=== PATIENT | female | born 2000 | race Caucasian/White ===

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

== ENCOUNTER 2018-07-23 00:05 | Inpatient (IN) | payer MEDICAID ==
[~2018-07-23] VITALS: Ht 167.6 cm; Wt 75.3 kg
[~2018-07-23 00:05] MED LIST changes: -BAC30OI TOP; +BACI28.34 TOP
[2018-07-23 00:23] VITALS: Ht 167.6 cm; Wt 75.3 kg
[2018-07-23 00:24] VITALS: BP 112/67; PULSE 92; RESP 17
[2018-07-23] MEDS ORDERED: PREN1TAB13 PO (00:25)
[2018-07-23] MEDS ORDERED: IBUPROFEN 600 MG TAB PO PRN (01:00)
[2018-07-23] MEDS ORDERED: OXYTOCIN 30 UNITS/LR 500 ML IV SCH ×2 (01:00)
[2018-07-23] MEDS ORDERED: BUTORPHANOL 2 MG INJ IV PRN (01:00)
[2018-07-23] MEDS ORDERED: CARBOPROST 250 MCG INJ IM PRN (01:00)
[2018-07-23] MEDS ORDERED: OXYTOCIN 30 UNITS/LR 500 ML IV PRN (01:00)
[2018-07-23] MEDS ORDERED: METHYLERGONOVINE 0.2 MG INJ IM PRN (01:00)
[2018-07-23] MEDS ORDERED: MISOPROSTOL 200 MCG TAB PR PRN (01:00)
[2018-07-23] MEDS ORDERED: LIDOCAINE 1% (MPF) 30 ML INJ INJ PRN (01:00)
[2018-07-23] MEDS ORDERED: AMPICILLIN 2 GM/NS (PMX) 100 ML IV ONE (01:00)
[2018-07-23] MEDS: LACTATED RINGER'S 1,000 ML IV SCH ×7 (01:21→23:27)
--- NOTE | 2018-07-23 01:41 | TRIAGE ---
OB Triage Datetime Report Generated by CPN: 07/23/2018 01:41 Datetime: 07/23/2018 00:35 Vaginal Exam Dilatation (cms): 1.0 Effacement (%): 50 Station: -4 Exam By: Tanvi TERRY Membrane Status: Intact Vaginal Bleeding: None Nitrazine: Negative Cervix, Position: Posterior Datetime: 07/23/2018 00:27 Time of Arrival: 07/23/2018 00:05 EGA: 41.0 Arrived By: Wheelchair Arrived From: Home Chief Complaint: DFM SINCE 5PM Movement: Decreased Movement: Decreased Rupture of Membranes: Denies Vaginal Discharge: Denies Recent Sexual Intercouse: Denies Abdominal Trauma: Not Applicable Patient Complaints: Other Time Provider Notified: 07/23/2018 00:42 Provider Notified: DR. VOGEL Initial Plan: EFM, SVE, CALL OB Datetime: 07/23/2018 00:20 Stage of : OB Triage Maternal Assessment Level of Consciousness: Fully Conscious DTR's/Clonus: DTRs 2+; No Clonus Headache: Denies Blurred Vision: No Respiratory Effort: Unlabored; Regular Rhythm; Equal Expansion Breath Sounds, Left: Clear and Equal Breath Sounds, Right: Clear and Equal Nausea/Vomiting: Denies RUQ Epigastric Pain: Denies Lower Extremities Edema: None Degree: None Upper Extremities Edema: None Degree: None Facial Edema: None Temperature Route: Oral Fall Risk Assessment History of Falling: (0) No Secondary Diagnosis: (0) No Ambulatory Aid: (0) Bedrest/Nurse Assist IV Therapy: (0) No Gait: (0) Normal/Bedrest/Immobile Mental Status: (0) Oriented to Own Ability Fall Score: 0 Fall Risk Score Definition: No Risk: No action required Pain Assessment Pain Scale: 0 Pain Presence: None/Denies Pain Type: N/A Datetime: 07/23/2018 00:16 Labor Evaluation Monitor Mode: External Contraction Comments: APPLIED Heart Rate Monitor Mode: External US Comments: APPLIED
[2018-07-23] MEDS: MISOPROSTOL 50 MCG CAPSULE PO PRN ×3 (04:07→15:30)
--- NOTE | 2018-07-23 04:29 | HP ---
Date/Time of Note Date/Time of Note DATE: 07/23/18 TIME: 04:23 OB - History Hx of Present Free Text/Dictation Late entry note. Patient seen on 07/22/2018 18 years old 1 feet single intrauterine at 41 weeks with JODY of 07/16/2018 complaining of decreased movement. She denies nausea, vomiting, shortness of breath, chest pain, headache, visual changes, vaginal bleeding or LOF. Chief Complaint: Decreased movement Estimated Due Date: Jul 16, 2018 : 1 Care: Good Care Ultrasounds: Normal mid trimester US Obstetrical Complications: None Medical Complications: None Past Family/Social History * Past Medical, Surgical, Family and Obstetric Histories reviewed from [facility]. Blood Type: O+ Rubella: immune RPR/VDRL: Negative GBS Status: Negative HBsAG: Negative OB Admission Exam Vital Signs Vital Signs Vital Signs Date Temp Pulse Resp B/P (MAP) Pulse Ox O2 O2 Flow FiO2 Time Delivery Rate 07/23/18 98.8 92 17 112/67 Room Air 00:24 (82) Physical Exam HEENT: WNL Heart: Rhythm Normal Abdomen: WNL Extremities: Normal Cervical Dilatation: 1cm Effacement: 50% Station: Ballotable Membranes: Intact Heart Rate: 140's Accelerations: Accelerations Present Decelerations: No Decelerations Varibility: Moderate Contractions on Admission: >10 Minutes Apart Intensity: Mild Last 72 hours Lab Results CBC & BMP 07/23/18 01:23 OB Assessment/Plan Other plan: 18 years old 1 with single intrauterine at 41 weeks complaining of decreased movement admitted for induction of labor. - FHR: No sign of metabolic acidosis- Category I - Continuous EFM, toco - CBC, blood type and screen - Analgesia options with R/B/A discussed in detail with patient - Epidural per patient request - Ultrasound performed, CATRACHO 10.7 and biophysical profile 8 out of 8. EFW 3658 g - Cytotec for induction of labor please see the orders - O+/Rubella: Immune - GBS: Negative - Follow-up with primary OB Admission, procedures, expectations, risks and possible complications have been discussed in detail with the patient. Risk of vaginal delivery including but not limited to bleeding, infection, cervical laceration, placental retention, injury to fetus, blood transfusion, blood transfusion related infection, risk of anesthesia, adhesion, cervical laceration, episiotomy/laceration, possible delivery with risk of bleeding, infection, injury to other organs (bowel, bladder, ureter, vessels, nerves), injury to fetus, blood transfusion, blood transfusion related infection, risk of anesthesia, scar and hernia formation, needs for future , removal of uterus or any other indicated surgery discussed with the patient. She expressed understanding and repeats the risks. All of her questions were answered. She signed the informed consent. PHYSICIAN'S VERIFICATION OF INFORMED CONSENT The patient was counseled regarding the procedure, its indications, risks, potential complications and alternatives and any questions were answered. Consent was obtained. PLANNED PROCEDURE/TREATMENT: Vaginal delivery, episiotomy, repair of laceration possible delivery BRANDON VOGEL Jul 23, 2018 04:29
[2018-07-23] MEDS ORDERED: AMPICILLIN 1 GM/NS (PMX) 50 ML IV SCH (05:00)
[2018-07-23] MEDS ORDERED: MISOPROSTOL 50 MCG CAPSULE PO SCH (05:00)
--- NOTE | 2018-07-23 07:42 | PREAC ---
Date/Time of Note Date/Time of Note DATE: 07/23/18 TIME: 07:42 Anesthesia Eval and Record Evaluation Time Pre-Procedure Interview DATE: 07/23/18 TIME: 07:42 Age 18 Sex female NPO: 8 hrs Preoperative diagnosis labor pain Planned procedure epidural Past Medical History Past Medical History: Includes : Gestational age: (41.1) Surgery & Anesthesia Issues No known issue Meds Anticoagulation: No Beta Jacqui within 24 hr: No Reason Beta Jacqui not given: Pt. not on B-Jacqui Active Scripts Ibuprofen* (Ibuprofen*) 600 Mg Tablet, 600 MG PO Q6, #30 TAB Prov:TERELL CORDERO PA-C 02/01/15 Bacitracin* (Bacitracin Zinc Oint*) 28.35 Gm Oint, 1 APPLIC TOP BID, #1 TUB APPLI TO Prov:TERELL CORDERO PA-C 02/01/15 Neomy Sulf/Bacitrac Zn/Poly* (Neosporin* Topical Oint) 15 Gm Oint..gm., 1 APPLIC TOP BID for 7 Days, TUB Prov:CHODORIS 10/13/14 Ibuprofen* (Motrin*) 600 Mg Tab, 600 MG PO Q6 for PAIN, #15 TAB Prov:CHODORIS 10/13/14 Reported Medications Pnv95/Ferrous Fumarate/FA ( Vitamins Tablet) 1 Each Tablet, 1 EACH PO, TAB 07/23/18 Current Medications Lactated Ringer's 1,000 ml @ 125 mls/hr Q8H IV Last administered on 07/23/18at 05:25; Admin Dose 125 MLS/HR; Start 07/23/18 at 00:44 Butorphanol Tartrate (Stadol) 2 mg Q2H PRN IV .PAIN; Start 07/23/18 at 01:00 Lidocaine (Xylocaine 1% (Mpf)) 30 ml ONCE PRN INJ .EPISIOTOMY; Start 07/23/18 at 01:00 Oxytocin/Lactated Ringer's 500 ml @ 500 mls/hr ONCE POST IV ; Start 07/23/18 at 01:00 Oxytocin/Lactated Ringer's 500 ml @ 125 mls/hr POST IV ; Start 07/23/18 at 01:00 Ibuprofen (Motrin) 600 mg ONCE PRN PO .PAIN 1-5; Start 07/23/18 at 01:00 Oxytocin/Lactated Ringer's 500 ml @ 0 mls/hr ONCE PRN IV .VAGINAL BLEEDING; Start 07/23/18 at 01:00 Methylergonovine Maleate (Methergine) 0.2 mg ONCE PRN IM .VAGINAL BLEEDING; Start 07/23/18 at 01:00 Carboprost Tromethamine (Hemabate) 250 mcg ONCE PRN IM .VAGINAL BLEEDING; Start 07/23/18 at 01:00 Misoprostol (Cytotec) 1,000 mcg ONCE PRN TN .VAGINAL BLEEDING; Start 07/23/18 at 01:00 Misoprostol (Cytotec 50 Mcg Capsule) 50 mcg Q4 PRN PO TO INDUCE UC'S Last administered on 07/23/18at 04:07; Admin Dose 50 MCG; Start 07/23/18 at 04:00 Meds reviewed: Yes Allergies Coded Allergies: No Known Allergy (Unverified , 07/23/18) Allergies Reviewed: Yes Labs/Studies Labs Reviewed: Reviewed by anesthesiologist Result Diagram: 07/23/18 0123 Laboratory Tests 07/23/18 01:23 Blood Bank Test 07/23/18 01:23 Antibody Screen NEGATIVE Blood Type O POSITIVE Rh Immune Globulin Candidate NO test: Positive Studies: ECG (n/a), CXR (n/a) Pre-procedure Exam Last vitals Vital Signs Date Temp Pulse Resp B/P (MAP) Pulse Ox O2 O2 Flow FiO2 Time Delivery Rate 07/23/18 98.8 92 17 112/67 Room Air 00:24 (82) Airway: Adequate mouth opening Mallampati: Mallampati I Teeth: Normal Lung: Normal Heart: Normal ASA Physical Status ASA physical status: 2 Emergency: None Planned Anesthetic Neuraxial: Epidural Pre-operative Attestations Prior to commencing anesthesia and surgery, the patient was re-evaluated, there was verification of: *The patient's identity *The results of appropriate recent lab work and preoperative vital signs *The above evaluation not changing prior to induction *Anesthetic plan, risk benefits, alternative and complications discussed with patient/family; questions answered; patient/family understands, accepts and wishes to proceed. ESTER WRIGHT MD Jul 23, 2018 07:42
[2018-07-23] MEDS ORDERED: FENTAnyl 2MCG/ML-ROPIV 0.2% 100 ML ONE (07:56)
[2018-07-23] MEDS ORDERED: EPHEDrine 25 MG/5 ML SYG ONE (10:45)
[2018-07-23] MEDS: EPHEDrine SULFATE 50 MG/5 ML SYG IV PRN ×3 (10:54→13:09)
[2018-07-23] MEDS ORDERED: FENTAnyl 2MCG/ML-ROPIV 0.2% 100 ML BAG EPI SCH (11:00)
[2018-07-23] MEDS ORDERED: NALOXONE (0.4 MG/ML) INJ IV PRN (11:00)
[2018-07-23] MEDS ORDERED: ONDANSETRON 4 MG INJ IV PRN (11:00)
[2018-07-23] MEDS ORDERED: EPHEDrine SULFATE 50 MG/5 ML SYG IV PRN (19:30)
[2018-07-24] MEDS ORDERED: DIPHENOXYLATE/ATROPINE TAB PO ONE (01:30)
[2018-07-24] MEDS ORDERED: OXYTOCIN 30 UNITS/LR 500 ML IV SCH (02:20)
--- NOTE | 2018-07-24 02:20 | LDN ---
Date/Time of Note Date/Time of Note DATE: 07/24/18 TIME: 02:16 Delivery Summary July 24, 2018 Weeks of Gestation 41 weeks Placenta Delivered: Spontaneously Meconium: none Episiotomy: Yes Indication for episiotomy heart deceleration during second stage of labor, prolonged deceleration, Perineal laceration: 2 Laceration repair: Due to heart deceleration during second stage of labor and prolonged deceleration at +2 station , decision was made to perform with vacuum assisted vaginal delivery. Using Kiwi vacuum at complete complete +2 station vacuum extraction applied. Delivery required episiotomy for faster delivery of the baby due to terminal deceleration. A right mediolateral episiotomy performed. Baby's head was delivered first in the right lateral position. 3 times tight nuchal cord as well as cord knots was noted for. Baby's cord was clamped and cut and was immediately handed to the waiting artery team Anesthesia type: Epidural Estimated blood loss: 400 Sponge & Needle done & correct: Yes All needle counts correct: Yes Any foreign bodies felt in the: No Infant Delivery Information Sex Sex: male Apgars 1 Minute: 9 5 Minute: 9 Suctioning Nose & mouth suctioned at santiago: Yes Delee suction performed: Yes Umbilical Cord Umbilical cord with: 3 Vessels Cord presentations: nuchal cord (Nuchal cord x3 tight with a true knots noted) Nuchal cord present X: 3 Cord Blood was obtained: Yes Mother & Baby Disposition Disposition Mom & Baby to Maternity; Good: Yes Mom transferred to: Other () Baby to NICU: No LISA LUNDBERG MD Jul 24, 2018 02:20
[2018-07-24] MEDS ORDERED: ACETAMINOPHEN 325 MG TAB PO PRN (02:30)
[2018-07-24] MEDS ORDERED: METHYLERGONOVINE 0.2 MG INJ IM PRN (02:30)
[2018-07-24] MEDS ORDERED: MISOPROSTOL 200 MCG TAB PR PRN (02:30)
[2018-07-24] MEDS ORDERED: OXYTOCIN 30 UNITS/LR 500 ML IV PRN (02:30)
[2018-07-24] MEDS ORDERED: NEOMYC/POLYMYX/BACIT 30 GM OINT TOP SCH (02:30)
[2018-07-24] MEDS ORDERED: ZOLPIDEM 5 MG TAB PO PRN (02:30)
[2018-07-24] MEDS ORDERED: CARBOPROST 250 MCG INJ IM PRN (02:30)
[2018-07-24] MEDS ORDERED: DIPHENHYDRAMINE 25 MG CAP PO PRN (02:30)
[2018-07-24] MEDS: IBUPROFEN 600 MG TAB PO SCH ×5 (02:30→23:31)
[2018-07-24] MEDS ORDERED: BACITRACIN 0.5%/ZINC 28.35 GM OINT TOP SCH ×2 (02:30→03:22)
[2018-07-24] MEDS ORDERED: ONDANSETRON 4 MG INJ IV PRN (02:30)
[2018-07-24] MEDS: SENNA/DOCUSATE NA (8.6MG/50MG) TAB PO SCH ×3 (02:30→21:07)
[2018-07-24] MEDS ORDERED: NACL 0.9% 3 ML SYG IV SCH (02:30)
[2018-07-24] MEDS ORDERED: IBUPROFEN 600 MG TAB PO SCH ×2 (02:30)
[2018-07-24] MEDS: HYDROCODONE/APAP (5/325) TAB PO PRN ×2 (03:01→10:45)
--- NOTE | 2018-07-24 03:59 | PAC ---
Date/Time of Note Date/Time of Note DATE: 07/24/18 TIME: 03:59 Post-Anesthesia Notes Post-Anesthesia Note Last documented vital signs Vital Signs Date Temp Pulse Resp B/P (MAP) Pulse Ox O2 O2 Flow FiO2 Time Delivery Rate 07/24/18 98.8 92 17 112/67 97 Room Air 00:24 (82) Activity: WNL Respiratory function: WNL Cardiovascular function: WNL Mental status: Baseline Pain reasonably controlled: Yes Hydration appropriate: Yes Nausea/Vomiting absent: No ESTER RWIGHT MD Jul 24, 2018 03:59
[2018-07-24] MEDS: WITCH HAZEL/GLYCERIN PAD PR PRN (06:21)
[2018-07-24] MEDS: BENZOCAINE 20% 56 ML SPRAY TOP PRN (06:22)
[2018-07-24] MEDS: LACTATED RINGER'S 1,000 ML IV SCH (06:28)
[2018-07-24 08:24] VITALS: BP 104/59; PULSE 69; RESP 19
--- NOTE | 2018-07-24 09:28 | DS ---
Date/Time of Note Date/Time of Note DATE: 07/24/18 TIME: 09:27 Discharge Summary Admission/Discharge Info Admit Date/Time Jul 23, 2018 at 00:45 Discharge Date/Time Discharge Diagnosis term Patient Condition: Stable Hospital Course unremarkable Home Meds Active Scripts Ibuprofen* (Ibuprofen*) 600 Mg Tablet, 600 MG PO Q6, #30 TAB Prov:TERELL CORDERO JUAN PABLO 02/01/15 Bacitracin* (Bacitracin Zinc Oint*) 28.35 Gm Oint, 1 APPLIC TOP BID, #1 TUB APPLI TO Prov:TERELL CORDERO JUAN PABLO 02/01/15 Neomy Sulf/Bacitrac Zn/Poly* (Neosporin* Topical Oint) 15 Gm Oint..gm., 1 APPLIC TOP BID for 7 Days, TUB Prov:EUGENIA BEAULIEUA 10/13/14 Ibuprofen* (Motrin*) 600 Mg Tab, 600 MG PO Q6 for PAIN, #15 TAB Prov:EUGENIA BEAULIEUA 10/13/14 Reported Medications Pnv95/Ferrous Fumarate/FA ( Vitamins Tablet) 1 Each Tablet, 1 EACH PO, TAB 07/23/18 Primary Care Provider Care Physician No Primary Pending Labs Laboratory Tests Test 07/24/18 01:14 07/24/18 01:15 07/24/18 05:40 Blood Gas Specimen CBA CBV Source Arterial Blood Date 07/24/2018 1:14:12 07/24/2018 1:15:42 Drawn AM AM Arterial Blood Gas CORD CORD Puncture Site Bishop Test N/A N/A Cord Blood 1.2 % 1.0 % Carboxyhemoglobin Cord Arterial Blood 7.339 (7.240-7.400) pH Cord Arterial Blood 35.7 mmHG (25-50) PCO2 Cord Arterial Blood 37.5 PO2 mmHG (15.0-45.0) Cord Arterial Blood 18.8 HCO3 mmol/L (22.0-29.0) Cord Arterial Blood -6.1 mmol/L Base Excess POC Cord Arterial 79.0 mmHG Blood O2 Sat Cord Arterial Blood 15.7 g/dl Hemoglobin Cord Arterial 77.0 % Blood Oxyhemoglobin Cord Arterial 1.3 % Blood Methemoglobin Blood Gas A-a O2 69.5 mmHg Differential Blood Gas 37.0 C 37.0 C Temperature Blood Gas Modality ROOM AIR ROOM AIR FiO2 21.0 % 21.0 % Blood Gas Critical T. FISTELL RN T. FISTELL RN Value Read Back Blood Gas Notified CD CD Whom Blood Gas Notified 07/24/2018 1:42:02 07/24/2018 1:41:03 Time AM AM Cord Venous Blood 7.314 pH Cord Venous Blood 39.8 mmHG (23-50) PCO2 Cord Venous Blood 37.5 PO2 mmHG (15.0-45.0) Cord Venous Blood 19.8 HCO3 mmol/L (22.0-29.0) Cord Venous Blood -6.0 mmol/L Base Excess POC Cord Venous 77.4 mmHG Blood Oxygen Sat Cord Venous Blood 15.0 g/dl Hemoglobin Cord Venous 75.7 % Blood Oxyhemoglobin Cord Venous 1.2 % Blood Methemoglobin Hemoglobin 11.3 g/dl (12.0-16.0) Hematocrit 33.6 % (37.0-47.0) YODIT LOCO MD Jul 24, 2018 09:28
[2018-07-24 12:20] VITALS: BP 94/52; PULSE 74; RESP 17
[2018-07-24 16:30] VITALS: BP 106/60; PULSE 74; RESP 18
[2018-07-24 20:10] VITALS: BP 99/56; PULSE 81; RESP 19
[2018-07-25 03:30] VITALS: BP 103/56; PULSE 78; RESP 20
[2018-07-25] MEDS: IBUPROFEN 600 MG TAB PO SCH ×4 (05:26→23:57)
[2018-07-25 07:40] VITALS: BP 105/61; PULSE 61; RESP 17
[2018-07-25] MEDS: SENNA/DOCUSATE NA (8.6MG/50MG) TAB PO SCH ×2 (10:32→20:08)
[2018-07-25] MEDS: BENZOCAINE 20% 56 ML SPRAY TOP PRN (10:33)
[2018-07-25] MEDS: LANOLIN HPA 1 PKT TOP PRN (10:33)
[2018-07-25 16:49] VITALS: BP 109/65; PULSE 80; RESP 17
[2018-07-25 20:05] VITALS: BP 102/57; PULSE 100; RESP 17
[2018-07-25] MEDS: HYDROCODONE/APAP (5/325) TAB PO PRN (20:08)
[2018-07-26 04:05] VITALS: BP 97/56; PULSE 72; RESP 19
[2018-07-26] MEDS: IBUPROFEN 600 MG TAB PO SCH ×2 (05:33→12:19)
[2018-07-26 07:50] VITALS: BP 102/57; PULSE 70; RESP 17
[2018-07-26] MEDS: SENNA/DOCUSATE NA (8.6MG/50MG) TAB PO SCH (08:58)
[2018-07-26] MEDS ORDERED: VARICELLA VACCINE LIVE/PF 1,350 UNIT/0.5 ML ML SC* ONE (09:00)
[2018-07-26] MEDS ORDERED: DIPHTH/TET/ACEL PERTUSS (ADULT) 0.5 ML VIAL IM* ONE (09:00)
[2018-07-26] MEDS ORDERED: MEASLES,MUMPS,RUBELLA VACCINE INJ SC* ONE (09:00)
[2018-07-26] MEDS: WITCH HAZEL/GLYCERIN PAD PR PRN (10:23)
--- NOTE | 2018-07-26 10:24 | DS ---
Date/Time of Note Date/Time of Note DATE: 07/26/18 TIME: 10:22 Obstetrical Discharge Record Final Diagnosis Final Diagnosis: Term delivered Vaginal Delivery Obstetrical Delivery: Spontaneous, Laceration, Repaired Complications Augmentation: Yes Induction: Yes Condition on Discharge Physical Assessment Last Vitals: T=98.2 BP 102/52 Voiding: Yes Bowel Movement: Yes Breast: Engorged Fundus: Firm Episiotomy: Laceration intact. Calf Tenderness: No Patient Condition: Good SUZIE ESTEBAN MD Jul 26, 2018 10:24
[2018-07-26] MEDS: LANOLIN HPA 1 PKT TOP PRN (12:18)
--- NOTE | 2018-07-27 15:23 | DELSUM ---
Delivery Summary A-C Datetime Report Generated by CPN: 07/27/2018 15:23 DELIVERY PERSONNEL Rivet Driver: Canuto, Lawanda MATERNAL INFORMATION Delivery Anesthesia: Epidural Medications in Delivery: LR WITH 30 UNITS OF PITOCIN; 800MCG CYTOTEC, HEMABATE Delivery QBL (ml): 400 Placenta Cultured: No Maternal Complications: None LABOR SUMMARY EDC: 07/16/2018 00:00 No. Babies in Womb: 1 (Annotations: Data stored by [facility] on behalf of user) Attempted: No Labor Anesthesia: Epidural LABOR INFORMATION Reason for Induction: Postterm Onset of Labor: 07/23/2018 15:20 Complete Dilatation: 07/24/2018 00:49 Cervical Ripening Agents: Cytotec @ (Annotations: Data stored by CPN on behalf of user) Oxytocin: N/A Group B Beta Strep: Negative Antibiotics # of Doses: 0 Steroids Given: None Reason Steroids Not Administered: Not Applicable MEMBRANES Membranes Rupture Method: Spontaneous Rupture of Membranes: 07/23/2018 23:48 Length of Rupture (hr): 1.18 Amniotic Fluid Color: Clear Amniotic Fluid Amount: Small Amniotic Fluid Odor: Normal (Annotations: Data stored by CPN on behalf of user) STAGES OF LABOR Stage 1 hr: 9 Stage 1 min: 29 Stage 2 hr: 0 Stage 2 min: 10 Stage 3 hr: 0 Stage 3 min: 3 Total Time in Labor hr: 9 Total Time in Labor min: 42 VAGINAL DELIVERY Episiotomy: Right Mediolateral Laceration Extension: N/A Laceration Type: None Laceration Repair: Yes Initial Vag Sponge Count: 10 Final Vag Sponge Count: 20 Initial Vag Sharps Count: 1 Final Vag Sharps Count: 3 Sponge Count Correct: Yes Sharps Count Correct: Yes BABY A INFORMATION Delivery Date/Time: 07/24/2018 00:59 Method of Delivery: Vaginal Born in Route : No : N/A Forceps: N/A Vacuum Extraction: Successful Shoulder Dystocia : No ASSISTED DELIVERY BABY A Vacuum Number of Pulls: 3 Vacuum Number of PopOffs: 2 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: [employer] Total Time Vacuum Applied: 41 seconds Vacuum/Forceps Comment: pressure controlled by MD SHOULDER DYSTOCIA BABY A Infant Delivery Date/Time: 07/24/2018 00:59 PRESENTATION/POSITION BABY A Presentation: Cephalic Cephalic Presentation: Vertex Vertex Position: Left Occipital Anterior Breech Presentation: N/A PLACENTA INFORMATION BABY A Placenta Delivery Time : 07/24/2018 01:02 Placenta Method of Delivery: Spontaneous Placenta Status: Delivered SCORES BABY A Heart Rate 1 min: >100 bpm Resp Effort 1 min: Good Cry Reflex Irritability 1 min: Cough/Sneeze/Pulls Away Muscle Tone 1 min: Active Motion Color 1 min: Body Ola, Extremit Blue Resuscitation Effort 1 min: Tactile Stimulation SCORE 1 MIN: 9 Heart Rate 5 min: >100 bpm Resp Effort 5 min: Good Cry Reflex Irritability 5 min: Cough/Sneeze/Pulls Away Muscle Tone 5 min: Active Motion Color 5 min: Body Ola, Extremit Blue Resuscitation Effort 5 min: Tactile Stimulation SCORE 5 MIN: 9 INFORMATION BABY A Gestational Age at Delivery: 41.1 Gestational Status: Late Term- 41- 41.6 Weeks Infant Outcome : Liveborn Infant Condition : Stable Infant Sex: Male IDENTIFICATION/MEDS BABY A ID Band Number: [id number] ID Band Location: Right Leg; Left Arm Sensor Applied: Yes Sensor Number: [id number] Sensor Location : Cord Clamp Vitamin K Given : Not Given Erythromycin Given: Not Given WEIGHT/LENGTH BABY A Infant Birthweight (gm): 3135 Weight (lb): 6 Infant Weight (oz): 15 Length (in): 19.75 Length (cm): 50.17 CORD INFORMATION BABY A No. Cord Vessels: 3 Nuchal Cord : x3 Nuchal Cord- Other: body True Knot: 1 Cord Blood Taken: Yes Infant Suction: Mouth; Nose ASSESSMENT BABY A Infant Complications: Multiple Variable Decels Physical Findings at Delivery: Molding of the Head Physical Findings- Other: vacuum Infant Respirations: Appears Normal Director Of Student Aid/ALS Called : No Infant Care By: NICU team Transferred To: Remains with Mother
== END 2018-07-26 15:22 | disposition home or self-care (01) | DRG 807 ==
LOC: OBT 00:05 → L-D 00:05 → OBT 00:45 → L-D 00:45 → PP1 07-24 15:40
PROVIDERS: ADMIT Obstetrics & Gynecology; ATTEND Obstetrics & Gynecology
PROC: 10D07Z6 Extraction of Products of Conception, Vacuum, Via Natural or Artificial Opening (ICD-10-PCS; principal; 2018-07-24)
PROC: 0W8NXZZ Division of Female Perineum, External Approach (ICD-10-PCS; 2018-07-24)
PROC: 0HQ9XZZ Repair Perineum Skin, External Approach (ICD-10-PCS; 2018-07-24)
PROC: 3E0P7VZ Introduction of Hormone into Female Reproductive, Via Natural or Artificial Opening (ICD-10-PCS; 2018-07-24)
DX: O36.8130 Decreased fetal movements, third trimester, not applicable or unspecified (principal); Z37.0 Single live birth; O69.1XX0 Labor and delivery complicated by cord around neck, with compression, not applicable or unspecified; O69.2XX0 Labor and delivery complicated by other cord entanglement, with compression, not applicable or unspecified; O76 Abnormality in fetal heart rate and rhythm complicating labor and delivery; O70.9 Perineal laceration during delivery, unspecified; Z3A.41 41 weeks gestation of pregnancy; Z23 Encounter for immunization
CPT/HCPCS: 36415; 36600; 62322; 76815; 76818; 82803; 85014; 85018; 85025; 85610; 85730; 86592; 86850; 86900; 86901; 90715; 90716; 99464; G0463; J2405; J2590; J3010; J7120